=== PATIENT | female | born 1970 | race Caucasian/White ===

== ENCOUNTER 2017-03-24 09:04 | Inpatient (IN) | payer BC, OTHER ==
[2017-03-24] MEDS ORDERED: Aspirin 81 MG Tab.Chew PO ONE (09:18)
[2017-03-24] MEDS ORDERED: Morphine 2 MG/ML Syringe IVPUSH ONE (09:18)
[2017-03-24] MEDS ORDERED: Ondansetron 4 MG/2 ML SDV IVPUSH ONE (09:18)
[2017-03-24] MEDS ORDERED: Nitroglycerin 2% Oint 1 GM UD Packet TOP ONE (09:19)
--- NOTE | 2017-03-24 09:20 | EDM.PDOC ---
ED HPI GENERAL MEDICAL PROBLEM - General Chief Complaint: Chest Pain Stated Complaint: CHEST PAIN Time Seen by Provider: 03/24/17 09:15 - History of Present Illness INITIAL COMMENTS - FREE TEXT/NARRATIVE: HISTORY AND PHYSICAL: History of present illness: Patient 46-year-old white female presents with a concern of chest pain shortness breath she's had this exacerbates been somewhat off and on to cross her chest somewhat vaguely described as no clear palliative or aggravating factors is no palpitations diaphoresis nausea or vomiting she denies history of known coronary artery disease or prior stroke she is a smoker Review of systems: As per history of present illness and below otherwise all systems reviewed and negative. Past medical history: As per history of present illness and as reviewed below otherwise noncontributory. Surgical history: As per history of present illness and as reviewed below otherwise noncontributory. Social history: No reported history of drug or alcohol abuse. Family history: As per history of present illness and as reviewed below otherwise noncontributory. Physical exam: HEENT: Atraumatic, normocephalic, pupils reactive, negative for conjunctival pallor or scleral icterus, mucous membranes moist, throat clear, neck supple, nontender, trachea midline. Lungs: Clear to auscultation, breath sounds equal bilaterally, chest nontender. Heart: S1S2, regular, negative for clicks, rubs, or JVD. Abdomen: Soft, nondistended, nontender. Negative for masses or hepatosplenomegaly. Negative for costovertebral tenderness. Pelvis: Stable nontender. Genitourinary: Deferred. Rectal: Deferred. Extremities: Atraumatic, negative for cords or calf pain. Neurovascular unremarkable. Neuro: Awake, alert, oriented. Cranial nerves II through XII unremarkable. Cerebellum unremarkable. Motor and sensory unremarkable throughout. Exam nonfocal. Diagnostics: CBC CMP PT/INR troponin d-dimer chest x-ray EKG Therapeutics: IV O2 monitor Nitropaste 1 inch morphine sulfate 2 mg Zofran 4 mg Impression: #1 chest pain Definitive disposition and diagnosis as appropriate pending reevaluation and review of above. Lower Anterior Chest Pain Score (Numeric/FACES): 10 - Related Data Allergies Allergy/AdvReac Type Severity Reaction Status Date / Time No Known Allergies Allergy Verified 03/24/17 09:11 Home Meds: Home Meds . [No Known Home Meds] 03/24/17 [History] ED ROS GENERAL - Review of Systems Review Of Systems: ROS reveals no pertinent complaints other than HPI. ED EXAM, GENERAL - Physical Exam Exam: See Below (See dictation) Course - Vital Signs Last Recorded V/S: Last Vital Signs Temp 36.6 C 03/24/17 09:16 Pulse 74 03/24/17 10:15 Resp 16 03/24/17 10:15 BP 120/79 03/24/17 10:15 Pulse Ox 97 03/24/17 10:15 - Orders/Labs/Meds Orders: Active Orders 24 hr Category Date Time Status Cardiac Monitoring [RC] . DIRECTED Care 03/24/17 09:11 Active EKG 12 Lead [EKG Documentation Completion] [RC] STAT Care 03/24/17 09:13 Active Ang Chest [CT] Stat Exams 03/24/17 10:09 Taken Chest 1V Frontal [CR] Stat Exams 03/24/17 09:11 Taken Labs: Laboratory Tests 03/24/17 03/24/17 03/24/17 Range/Units 09:19 09:19 09:19 WBC 8.88 (4.0-11.0) K/uL RBC 4.02 L (4.30-5.90) M/uL Hgb 12.7 (12.0-16.0) g/dL Hct 37.5 (36.0-46.0) % MCV 93.3 (80.0-98.0) fL MCH 31.6 (27.0-32.0) pg MCHC 33.9 (31.0-37.0) g/dL RDW Std Deviation 46.8 (28.0-62.0) fl RDW Coeff of Nicholas 14 (11.0-15.0) % Plt Count 224 (150-400) K/uL MPV 11.60 (7.40-12.00) fL Neut % (Auto) 68.2 (48.0-80.0) % Lymph % (Auto) 22.2 (16.0-40.0) % [place] % (Auto) 7.5 (0.0-15.0) % Eos % (Auto) 1.8 (0.0-7.0) % Baso % (Auto) 0.3 (0.0-1.5) % Neut # (Auto) 6.1 H (1.4-5.7) K/uL Lymph # (Auto) 2.0 (0.6-2.4) K/uL [place] # (Auto) 0.7 (0.0-0.8) K/uL Eos # (Auto) 0.2 (0.0-0.7) K/uL Baso # (Auto) 0.0 (0.0-0.1) K/uL Nucleated RBC % 0.0 /100WBC Nucleated RBCs # 0 K/uL INR 0.96 (0.86-1.11) D-Dimer, Quantitative 0.77 H (0.0-0.52) mg/LFEU Sodium 142 (136-146) mmol/L Potassium 4.0 (3.5-5.1) mmol/L Chloride 113 H (98-110) mmol/L Carbon Dioxide 20 L (21-31) mmol/L BUN 15 (6.0-23.0) mg/dL Creatinine 0.7 (0.6-1.5) mg/dL Est Cr Clr Drug Dosing 93.01 mL/min Estimated GFR (MDRD) > 60.0 ml/min Glucose 92 (60-110) mg/dL Calcium 8.6 L (8.8-10.8) mg/dL Total Bilirubin 0.4 (0.1-1.5) mg/dL AST 17 (5-40) IU/L ALT 17 (8-54) IU/L Alkaline Phosphatase 71 (40-150) Troponin I (0.0-0.29) NG/ML B-Natriuretic Peptide (<100) PG/ML Total Protein 6.4 (6.0-8.0) g/dL Albumin 3.6 (3.5-5.0) g/dL Globulin 2.8 (2.0-3.5) g/dL Albumin/Globulin Ratio 1.3 (1.3-2.8) 03/24/17 03/24/17 Range/Units 09:19 09:19 WBC (4.0-11.0) K/uL RBC (4.30-5.90) M/uL Hgb (12.0-16.0) g/dL Hct (36.0-46.0) % MCV (80.0-98.0) fL MCH (27.0-32.0) pg MCHC (31.0-37.0) g/dL RDW Std Deviation (28.0-62.0) fl RDW Coeff of Nicholas (11.0-15.0) % Plt Count (150-400) K/uL MPV (7.40-12.00) fL Neut % (Auto) (48.0-80.0) % Lymph % (Auto) (16.0-40.0) % [place] % (Auto) (0.0-15.0) % Eos % (Auto) (0.0-7.0) % Baso % (Auto) (0.0-1.5) % Neut # (Auto) (1.4-5.7) K/uL Lymph # (Auto) (0.6-2.4) K/uL [place] # (Auto) (0.0-0.8) K/uL Eos # (Auto) (0.0-0.7) K/uL Baso # (Auto) (0.0-0.1) K/uL Nucleated RBC % /100WBC Nucleated RBCs # K/uL INR (0.86-1.11) D-Dimer, Quantitative (0.0-0.52) mg/LFEU Sodium (136-146) mmol/L Potassium (3.5-5.1) mmol/L Chloride (98-110) mmol/L Carbon Dioxide (21-31) mmol/L BUN (6.0-23.0) mg/dL Creatinine (0.6-1.5) mg/dL Est Cr Clr Drug Dosing mL/min Estimated GFR (MDRD) ml/min Glucose (60-110) mg/dL Calcium (8.8-10.8) mg/dL Total Bilirubin (0.1-1.5) mg/dL AST (5-40) IU/L ALT (8-54) IU/L Alkaline Phosphatase (40-150) Troponin I < 0.10 (0.0-0.29) NG/ML B-Natriuretic Peptide 375 H (<100) PG/ML Total Protein (6.0-8.0) g/dL Albumin (3.5-5.0) g/dL Globulin (2.0-3.5) g/dL Albumin/Globulin Ratio (1.3-2.8) Meds: Medications Discontinued Medications Generic Name Dose Route Start Last Admin Trade Name Kashif PRN Reason Stop Dose Admin Aspirin 324 mg 03/24/17 09:18 03/24/17 09:30 Aspirin PO 03/24/17 09:19 324 mg ONETIME ONE Administration Iopamidol 50 ml 03/24/17 11:07 03/24/17 11:07 Isovue-370 (76%) IV 03/24/17 11:08 50 ml ONETIME STA Administration Morphine Sulfate 2 mg 03/24/17 09:18 03/24/17 09:31 Morphine IVPUSH 03/24/17 09:19 2 mg ONETIME ONE Administration Nitroglycerin 1 gm 03/24/17 09:19 03/24/17 09:30 Nitro-Bid 2% TOP 03/24/17 09:20 1 gm ONETIME ONE Administration Ondansetron HCl 4 mg 03/24/17 09:18 03/24/17 09:31 Zofran IVPUSH 03/24/17 09:19 4 mg ONETIME ONE Administration Departure - Departure Time of Disposition: 11:08 Disposition: Refer to Observation Condition: Good Clinical Impression: Chest pain - Discharge Information - My Orders Last 24 Hours: My Active Orders 03/24/17 09:11 Cardiac Monitoring [RC] . DIRECTED Chest 1V Frontal [CR] Stat 03/24/17 09:13 EKG 12 Lead [EKG Documentation Completion] [RC] STAT 03/24/17 10:09 Ang Chest [CT] Stat - Assessment/Plan Last 24 Hours: My Active Orders 03/24/17 09:11 Cardiac Monitoring [RC] . DIRECTED Chest 1V Frontal [CR] Stat 03/24/17 09:13 EKG 12 Lead [EKG Documentation Completion] [RC] STAT 03/24/17 10:09 Ang Chest [CT] Stat
[2017-03-24 09:50] LABS: CHLORIDE,CL 113 mmol/L (98-110); SODIUM,NA 142 mmol/L (136-146)
[2017-03-24] MEDS ORDERED: Iopamidol 755 MG/ML 50 ML Bottle IV STA (11:07)
[2017-03-24] MEDS ORDERED: Bisacodyl 5 MG Tab PO PRN (13:58)
[2017-03-24] MEDS ORDERED: Albuterol/Ipratropium 3.0-0.5 MG/3 ML Neb Soln NEB PRN (13:58)
[2017-03-24] MEDS ORDERED: Sodium Chloride 0.9% 10 ML Syringe FLUSH PRN (13:58)
[2017-03-24] MEDS ORDERED: Sodium Chloride 0.9% 2.5 ML Syringe FLUSH PRN (13:58)
[2017-03-24] MEDS ORDERED: Temazepam 15 MG Cap PO PRN (13:58)
[2017-03-24] MEDS ORDERED: Docusate Sodium 100 MG Cap PO PRN (13:58)
[2017-03-24] MEDS ORDERED: Lisinopril 10 MG Tab PO SCH (14:00)
[2017-03-24] MEDS: Acetaminophen 325 MG Tab PO PRN ×2 (14:01→18:14)
[2017-03-24] MEDS ORDERED: Nicotine 21 MG/24 Hr Patch TRDERM PRN (14:09)
--- NOTE | 2017-03-24 14:18 | PCM.HP ---
H&P History of Present Illness - General Date of Service: 03/24/17 Admit Problem/Dx: Admission Diagnosis/Problem Admission Diagnosis/Problem CHF, Congestive heart failure Source of Information: Patient, Provider, RN - History of Present Illness Initial Comments - Free Text/Narative: She presented to the ED today with chest pressure, dyspnea, LEMOS , orthopnea of two days duration. She has continued chest pressure since at least yesterday. She admits that she has no regular doctor and takes no prescription medicines No vomiting she thinks that she is "going through menopause. She has two menses per month. no fever no cough no known history of prior heart disease. Lower Anterior Chest Pain Score (Numeric/FACES): 7 - Related Data Allergies/Adverse Reactions: Allergies Allergy/AdvReac Type Severity Reaction Status Date / Time No Known Allergies Allergy Verified 03/24/17 09:11 Home Medications: Home Meds . [No Known Home Meds] 03/24/17 [History] Past Medical History HEENT History: Reports: None Cardiovascular History: Reports: None. Denies: CAD, Heart Failure, High Cholesterol, Hypertension, [place] Respiratory History: Reports: Other (See Below). 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 Musculoskeletal History: Reports: Other (See Below) Other Musculoskeletal History: chronic knee pain Neurological History: Reports: None Psychiatric History: Reports: None Endocrine/Metabolic History: Denies: Diabetes, Type I, Diabetes, Type II Hematologic History: Denies: Anticoagulation Therapy, Bleeding Disorder Oncologic (Cancer) History: Reports: None Dermatologic History: Reports: None - Infectious Disease History Infectious Disease History: Reports: Chicken Pox - Past Surgical History HEENT Surgical History: Reports: None GI Surgical History: Reports: None Musculoskeletal Surgical History: Reports: Other (See Below) Other Musculoskeletal Surgeries/Procedures:: KNEE SURGERY Social & Family History - Family History Cardiac: Reports: Bypass, Other (See Below) Other Cardiac Family History: grandma had a stroke Oncologic: Reports: Prostate Other Oncologic Family History: mom's father had prostate CA - Tobacco Use Smoking Status *Q: Current Every Day Smoker Years of Tobacco use: 25 Packs/Tins Daily: 1 Tobacco Use Comment: Provided patient with ND quits information - Caffeine Use Caffeine Use: Reports: Soda - Alcohol Use Days Per Week of Alcohol Use: 0 Alcohol Use Comment: she occasionally has a marguerita. She does not use alcohol daily. - Recreational Drug Use Recreational Drug Use: No H&P Review of Systems - Review of Systems: Review Of Systems: See Below General: Denies: Fever, Chills HEENT: Reports: Headaches (since nitroglycerin placed). Denies: Dysphasia Pulmonary: Reports: Shortness of Breath. Denies: Cough, Sputum Cardiovascular: Reports: Chest Pain Gastrointestinal: Denies: Abdominal Pain, Hematemesis, Hematochezia, Melena Genitourinary: Reports: Abnormal Menses (as per HPI). Denies: Dysuria, Hematuria Skin: Denies: Cyanosis Neurological: Denies: Confusion, Seizure Exam - Exam Exam: See Below - Vital Signs Vital Signs: Last Vital Signs Temp 97.3 F 03/24/17 11:45 Pulse 70 03/24/17 11:45 Resp 16 03/24/17 11:45 BP 120/72 03/24/17 11:45 Pulse Ox 100 03/24/17 11:45 Weight: 110.3 kg - Exam General: Alert, Oriented, Cooperative HEENT: EOMI Neck: No: JVD (slight fullness of neck but thick neck; difficult to assess JVD) Lungs: Other (bibasilar rales) Cardiovascular: Regular Rate, Regular Rhythm GI/Abdominal Exam: Soft, Non-Tender (Female) Exam: Deferred Rectal (Female) Exam: Deferred Extremities: No Pedal Edema Neurological: Cranial Nerves Intact, Normal Speech Neuro Extensive - Motor, Sensory, Reflexes: No: Facial palsy (L), Facial Palsy ( R), Hemeplagia (R), Hemeplagia (L) Psychiatric: Alert, Normal Affect. No: Agitated - Patient Data Result Diagrams: 03/24/17 09:19 03/24/17 09:19 *Q Meaningful Use (ADM) - VTE *Q VTE Criteria *Q: - Stroke *Q Stroke Criteria *Q: - AMI *Q AMI Criteria *Q: - Problem List (1) Congestive heart failure SNOMED Code(s): 02807942 ICD Code: I50.9 - HEART FAILURE, UNSPECIFIED Status: Acute Current Visit : Yes Problem List Initiated/Reviewed/Updated: Yes Orders Last 24hrs: Active Orders 24 hr Category Date Time Status Antiembolic Devices [RC] PER UNIT ROUTINE Care 03/24/17 14:04 Ordered Cardiac Monitoring [RC] . DIRECTED Care 03/24/17 13:56 Ordered Communication Order [RC] STAT Care 03/24/17 14:11 Ordered Oxygen Therapy [RC] PRN Care 03/24/17 13:58 Ordered RT Aerosol Therapy [RC] ASDIRECTED Care 03/24/17 14:04 Ordered VTE/DVT Education [RC] PER UNIT ROUTINE Care 03/24/17 13:58 Ordered Vital Signs [RC] Q4H Care 03/24/17 13:58 Ordered 2 Gram Sodium Diet [DIET] Diet 03/24/17 Lunch Ordered Echo 2D wo Cont [US] Urgent Exams 03/25/17 08:00 Ordered B-TYPE NATRIURETIC PEPTIDE,BNP [CHEM] Routine Lab 03/24/17 14:08 Ordered CBC WITH AUTO DIFF [HEME] AM Lab 03/25/17 05:11 Ordered CBC WITH AUTO DIFF [HEME] AM Lab 03/26/17 05:11 Ordered CBC WITH AUTO DIFF [HEME] AM Lab 03/27/17 05:11 Ordered COMPREHENSIVE METABOLIC PN,CMP [CHEM] AM Lab 03/25/17 05:11 Ordered COMPREHENSIVE METABOLIC PN,CMP [CHEM] AM Lab 03/26/17 05:11 Ordered COMPREHENSIVE METABOLIC PN,CMP [CHEM] AM Lab 03/27/17 05:11 Ordered HCG QUALITATIVE,SERUM [CHEM] Stat Lab 03/24/17 14:08 Ordered MAGNESIUM [CHEM] AM Lab 03/25/17 05:11 Ordered MAGNESIUM [CHEM] AM Lab 03/26/17 05:11 Ordered MAGNESIUM [CHEM] AM Lab 03/27/17 05:11 Ordered TROPONIN I [CHEM] Q6H Lab 03/24/17 17:00 Ordered TROPONIN I [CHEM] Q6H Lab 03/24/17 23:00 Ordered TROPONIN I [CHEM] Q6H Lab 03/25/17 05:00 Ordered Acetaminophen [Tylenol] Med 03/24/17 13:39 Active 650 mg PO Q4H PRN Albuterol/Ipratropium [DuoNeb 3.0-0.5 MG/3 ML] Med 03/24/17 13:58 Ordered 3 ml NEB Q4HRRT PRN Bisacodyl [Dulcolax] Med 03/24/17 13:58 Ordered 5 mg PO DAILY PRN Docusate Sodium [Colace] Med 03/24/17 13:58 Ordered 100 mg PO BID PRN Enoxaparin [Lovenox] Med 03/25/17 09:00 Ordered 100 mg SUBCUT DAILY FLU Vacc [id number] 36mos UP/PF [Fluarix Quad 1219-1053] Med 03/31/17 23:59 Once 60 mcg IM .ONCE ONE Furosemide [Lasix] Med 03/25/17 09:00 Ordered 40 mg IVPUSH BID Furosemide [Lasix] Med 03/24/17 13:58 Once 60 mg IVPUSH NOW ONE Lisinopril [Prinivil] Med 03/24/17 14:00 Ordered 10 mg PO DAILY Nicotine [Habitrol] Med 03/24/17 14:09 Ordered 21 mg TRDERM DAILY PRN Sodium Chloride 0.9% [Saline Flush] Med 03/24/17 13:58 Ordered 10 ml FLUSH ASDIRECTED PRN Sodium Chloride 0.9% [Saline Flush] Med 03/24/17 13:58 Ordered 2.5 ml FLUSH ASDIRECTED PRN Temazepam [Restoril] Med 03/24/17 13:58 Ordered 15 mg PO BEDTIME PRN Saline Lock Insert [OM.PC] Routine Oth 03/24/17 13:58 Ordered Sequential Compression Device [OM.PC] Per Unit Routine Oth 03/24/17 13:59 Ordered Resuscitation Status Routine Resus Stat 03/24/17 13:58 Ordered Medication Orders Acetaminophen (Tylenol) 650 mg PO Q4H PRN PRN Reason: Headache Last Admin: 03/24/17 14:01 Dose: 650 mg Assessment/Plan Comment:: admit to inpatient see orders Tyrone Elizabeth MD
[2017-03-24] MEDS ORDERED: Furosemide 20 MG/2 ML VIAL IVPUSH ONE (14:30)
[2017-03-24] MEDS ORDERED: Morphine 4 MG/ML Syringe IVPUSH PRN (19:48)
[2017-03-24] MEDS ORDERED: Ondansetron 4 MG/2 ML SDV IVPUSH PRN (21:22)
--- NOTE | 2017-03-24 21:50 | PCM.SN ---
- Free Text/Narrative Note: I was called to see patient for sinus tachycardia. "She has continued chest pressure and now more dyspnea. Exam: lungs: increased work of breathing; CTA heart: RRR rapid normal mentation A; tachycardia; dyspnea, chest pain. Presumptive diagnosis was CHF but must consider other etiology such as pneumonia now with over diuresis. P: echo tomorrow fluid bolus CTa was neg for PE lab blood cultures zosyn, vancomycin, azithromycin. Tyrone Elizabeth MD
[2017-03-24] MEDS ORDERED: Piperacillin/Tazobactam 3.375 GM in Sodium Chloride 0.9% 50 ML IV SCH (22:00)
[2017-03-24] MEDS ORDERED: Sodium Chloride 0.9% 1,000 ML IV SCH (22:00)
[2017-03-24 22:53] LABS: CHLORIDE,CL 106 mmol/L (98-110); SODIUM,NA 141 mmol/L (136-146)
[2017-03-24] MEDS ORDERED: Azithromycin 500 MG in Sodium Chloride 0.9% 250 ML IV SCH (23:00)
[2017-03-24] MEDS ORDERED: Diltiazem 25 MG/5 ML SDV IVPUSH STA (23:18)
[2017-03-24] MEDS ORDERED: Potassium Chloride 10% 20 MEQ/15 ML Soln 30 ML UD Cup PO ONE (23:46)
[2017-03-25] MEDS ORDERED: Vancomycin 1.5 GM in Sodium Chloride 0.9% 500 ML IV SCH ×2
[2017-03-25] MEDS ORDERED: Magnesium Sulfate/Water 4 GM in Premix Bag 1 BAG IV ONE ×2
[2017-03-25] MEDS ORDERED: Diltiazem 25 MG/5 ML SDV IVPUSH ONE (00:23)
--- NOTE | 2017-03-25 00:23 | PCM.DCSUM1 ---
Discharge Summary - Hospital Course Brief History: she was admitted for chest pain. - Discharge Data Discharge Date: 03/25/17 Discharge Disposition: DC/Tfer to Acute Hospital 02 Condition: Serious - Discharge Diagnosis/Problem(s) (1) Congestive heart failure SNOMED Code(s): 26278947 ICD Code: I50.9 - HEART FAILURE, UNSPECIFIED Status: Acute Current Visit : Yes (2) Atrial fibrillation with rapid ventricular response SNOMED Code(s): 047308392865651 ICD Code: I48.91 - UNSPECIFIED ATRIAL FIBRILLATION Status: Acute Current Visit: Yes - Patient Summary/Data Hospital Course: Serial troponins were normal. CXR was suggestive of pulmonary edema. D dimer was negative but CTa chest was c/w pulmonary edema. It was thought that she had CHF new onset. She reported symptoms of LEMOS, PND and orthopnea. She was given lasix 60 mg IV. She had worsening dyspnea and was reported to be tachycardic. Twelve lead EKG showed atrial fibrillation with RVR. Her blood pressure was 90/50 mm Hg. IVF bolus was ordered and diltiazem was ordered. After 10 mg diltiazem IV her heart rate went from 150's to 130s. further diltiazem boluses ( 5 mg x 2) and then diltiazem drip started I discussed with patient and family regarding transfer.Family actually requested transfer and I agreed. I also ordered mg and K supplementation. I spoke with Dr Traore, ER physician Olamide Hart who agrees to accept in transfer. - Discharge Plan Home Medications: Home Meds . [No Known Home Meds] 03/24/17 [History] Forms: ED Department Discharge Referrals: PCP,None [Primary Care Provider] - - Patient Data Vitals - Most Recent: Last Vital Signs Temp 97.7 F 03/24/17 21:00 Pulse 74 03/24/17 21:00 Resp 13 03/24/17 21:00 BP 124/75 03/24/17 21:00 Pulse Ox 97 03/24/17 21:00 Weight - Most Recent: 110.3 kg I&O - Last 24 hours: Intake & Output 03/24/17 03/24/17 03/25/17 14:59 22:59 06:59 Intake Total 1400 Output Total 1150 Balance 250 Lab Results - Last 24 hrs: Laboratory Results - last 24 hr 03/24/17 03/24/17 03/24/17 Range/Units 14:25 14:25 16:47 WBC (4.0-11.0) K/uL RBC (4.30-5.90) M/uL Hgb (12.0-16.0) g/dL Hct (36.0-46.0) % MCV (80.0-98.0) fL MCH (27.0-32.0) pg MCHC (31.0-37.0) g/dL RDW Std Deviation (28.0-62.0) fl RDW Coeff of Nicholas (11.0-15.0) % Plt Count (150-400) K/uL MPV (7.40-12.00) fL Neut % (Auto) (48.0-80.0) % Lymph % (Auto) (16.0-40.0) % [place] % (Auto) (0.0-15.0) % Eos % (Auto) (0.0-7.0) % Baso % (Auto) (0.0-1.5) % Neut # (Auto) (1.4-5.7) K/uL Lymph # (Auto) (0.6-2.4) K/uL [place] # (Auto) (0.0-0.8) K/uL Eos # (Auto) (0.0-0.7) K/uL Baso # (Auto) (0.0-0.1) K/uL Nucleated RBC % /100WBC Nucleated RBCs # K/uL Sodium (136-146) mmol/L Potassium (3.5-5.1) mmol/L Chloride (98-110) mmol/L Carbon Dioxide (21-31) mmol/L BUN (6.0-23.0) mg/dL Creatinine (0.6-1.5) mg/dL Est Cr Clr Drug Dosing mL/min Estimated GFR (MDRD) ml/min Glucose (60-110) mg/dL Calcium (8.8-10.8) mg/dL Magnesium (1.5-2.3) mEq/L Troponin I < 0.10 (0.0-0.29) NG/ML B-Natriuretic Peptide 373 H (<100) PG/ML HCG, Qual NEGATIVE (NEG) 03/24/17 03/24/17 03/24/17 Range/Units 22:03 22:03 22:11 WBC 9.90 (4.0-11.0) K/uL RBC 4.18 L (4.30-5.90) M/uL Hgb 13.3 (12.0-16.0) g/dL Hct 38.6 (36.0-46.0) % MCV 92.3 (80.0-98.0) fL MCH 31.8 (27.0-32.0) pg MCHC 34.5 (31.0-37.0) g/dL RDW Std Deviation 46.4 (28.0-62.0) fl RDW Coeff of Nicholas 14 (11.0-15.0) % Plt Count 199 (150-400) K/uL MPV 11.60 (7.40-12.00) fL Neut % (Auto) 74.3 (48.0-80.0) % Lymph % (Auto) 16.9 (16.0-40.0) % [place] % (Auto) 7.6 (0.0-15.0) % Eos % (Auto) 0.9 (0.0-7.0) % Baso % (Auto) 0.3 (0.0-1.5) % Neut # (Auto) 7.4 H (1.4-5.7) K/uL Lymph # (Auto) 1.7 (0.6-2.4) K/uL [place] # (Auto) 0.8 (0.0-0.8) K/uL Eos # (Auto) 0.1 (0.0-0.7) K/uL Baso # (Auto) 0.0 (0.0-0.1) K/uL Nucleated RBC % 0.0 /100WBC Nucleated RBCs # 0 K/uL Sodium 141 (136-146) mmol/L Potassium 3.2 L (3.5-5.1) mmol/L Chloride 106 (98-110) mmol/L Carbon Dioxide 22 (21-31) mmol/L BUN 13 (6.0-23.0) mg/dL Creatinine 0.7 (0.6-1.5) mg/dL Est Cr Clr Drug Dosing 93.01 mL/min Estimated GFR (MDRD) > 60.0 ml/min Glucose 119 H (60-110) mg/dL Calcium 9.2 (8.8-10.8) mg/dL Magnesium 1.2 L (1.5-2.3) mEq/L Troponin I < 0.10 (0.0-0.29) NG/ML B-Natriuretic Peptide (<100) PG/ML HCG, Qual (NEG) Med Orders - Current: Current Medications Acetaminophen (Tylenol) 650 mg PO Q4H PRN PRN Reason: Headache Last Admin: 03/24/17 18:14 Dose: 650 mg Albuterol/Ipratropium (Duoneb 3.0-0.5 Mg/3 Ml) 3 ml NEB Q4HRRT PRN PRN Reason: Shortness Of Breath/wheezing Last Admin: 03/24/17 17:49 Dose: 3 ml Bisacodyl (Dulcolax) 5 mg PO DAILY PRN PRN Reason: Constipation Docusate Sodium (Colace) 100 mg PO BID PRN PRN Reason: Constipation Enoxaparin Sodium (Lovenox) 40 mg SUBCUT DAILY COUNT INCLUDES THE [facility] Magnesium Sulfate 4 gm/ Premix 100 mls @ 25 mls/hr IV ONETIME ONE Stop: 03/25/17 03:59 Last Admin: 03/25/17 00:00 Dose: 25 mls/hr Lisinopril (Prinivil) 10 mg PO DAILY COUNT INCLUDES THE [facility] Last Admin: 03/24/17 14:57 Dose: 10 mg Morphine Sulfate (Morphine) 4 mg IVPUSH Q2H PRN PRN Reason: pain Last Admin: 03/24/17 20:12 Dose: 4 mg Nicotine (Habitrol) 21 mg TRDERM DAILY PRN PRN Reason: Other Last Admin: 03/24/17 15:08 Dose: 21 mg Ondansetron HCl (Zofran) 4 mg IVPUSH Q4H PRN PRN Reason: Nausea/Vomiting Last Admin: 03/24/17 21:34 Dose: 4 mg Sodium Chloride (Saline Flush) 10 ml FLUSH ASDIRECTED PRN PRN Reason: Keep Vein Open Sodium Chloride (Saline Flush) 2.5 ml FLUSH ASDIRECTED PRN PRN Reason: Keep Vein Open Temazepam (Restoril) 15 mg PO BEDTIME PRN PRN Reason: Sleep Vancomycin HCl (Pharmacy To Dose - Vancomycin) 1 dose .XX ASDIRECTED JONATHAN Discontinued Medications Aspirin (Aspirin) 324 mg PO ONETIME ONE Stop: 03/24/17 09:19 Last Admin: 03/24/17 09:30 Dose: 324 mg Diltiazem HCl (Diltiazem) 10 mg IVPUSH ONETIME STA Stop: 03/24/17 23:19 Last Admin: 03/24/17 23:43 Dose: 10 mg Enoxaparin Sodium (Lovenox) 100 mg SUBCUT DAILY COUNT INCLUDES THE [facility] Furosemide (Lasix) 60 mg IVPUSH NOW ONE Stop: 03/24/17 14:31 Last Admin: 03/24/17 15:04 Dose: 60 mg Furosemide (Lasix) 40 mg IVPUSH BID COUNT INCLUDES THE [facility] Azithromycin 500 mg/ Sodium (Chloride) 250 mls @ 250 mls/hr IV Q24H COUNT INCLUDES THE [facility] Stop: 03/25/17 00:03 Last Admin: 03/24/17 22:56 Dose: 250 mls/hr Piperacillin Sod/Tazobactam (Sod 3.375 gm/ Sodium Chloride) 50 mls @ 100 mls/ hr IV Q6H COUNT INCLUDES THE [facility] Last Admin: 03/24/17 22:16 Dose: 100 mls/hr Sodium Chloride (Normal Saline) 1,000 mls @ 1,000 mls/hr IV ASDIRECTED COUNT INCLUDES THE [facility] Stop: 03/24/17 22:59 Last Admin: 03/24/17 22:09 Dose: 1,000 mls/hr Vancomycin HCl 1.5 gm/ Sodium (Chloride) 500 mls @ 333.333 mls/hr IV Q8H COUNT INCLUDES THE [facility] Iopamidol (Isovue-370 (76%)) 50 ml IV ONETIME STA Stop: 03/24/17 11:08 Last Admin: 03/24/17 11:07 Dose: 50 ml Morphine Sulfate (Morphine) 2 mg IVPUSH ONETIME ONE Stop: 03/24/17 09:19 Last Admin: 03/24/17 09:31 Dose: 2 mg Nitroglycerin (Nitro-Bid 2%) 1 gm TOP ONETIME ONE Stop: 03/24/17 09:20 Last Admin: 03/24/17 09:30 Dose: 1 gm Ondansetron HCl (Zofran) 4 mg IVPUSH ONETIME ONE Stop: 03/24/17 09:19 Last Admin: 03/24/17 09:31 Dose: 4 mg Potassium Chloride (Potassium Chloride) 40 meq PO ONETIME ONE Stop: 03/24/17 23:47 Last Admin: 03/25/17 00:04 Dose: 40 meq *Q Meaningful Use (DIS) - VTE *Q VTE Criteria *Q: - Stroke *Q Stroke Criteria *Q: - AMI *Q AMI Criteria *Q:
[2017-03-25] MEDS ORDERED: Diltiazem 100 MG in Sodium Chloride 0.9% 100 ML IV SCH (00:30)
[2017-03-25] MEDS ORDERED: Enoxaparin 100 MG/1 ML Syringe SUBCUT ONE (00:30)
[2017-03-25 01:56] VITALS: BP 101/71
[2017-03-25] MEDS ORDERED: Furosemide 40 MG/4 ML VIAL IVPUSH SCH (09:00)
[2017-03-25] MEDS ORDERED: Enoxaparin 100 MG/1 ML Syringe SUBCUT SCH ×2 (09:00)
--- NOTE | 2017-03-25 16:17 | CR ---
EXAM DATE: 03/24/17 PATIENT'S AGE: 46 Patient: LIZABETH SAHNI Facility: [place], [place] Site . Site : 1970 Study: XRay Chest [id number]/[id number] 9:41:38 AM Ordering Physician: Doctor Fontenot Final Report: INDICATION: Chest pain. TECHNIQUE: Chest 1 view. COMPARISON: 11/12/2010 FINDINGS: Cardiovascular and mediastinum: Cardiac silhouette is upper limits of normal in size. The mediastinal contour is normal. Central pulmonary vasculature is indistinct. Lungs and pleural space: Mild bilateral interstitial prominence. No lobar consolidation. No mass. No pleural effusion. No pneumothorax. Bones and soft tissues: No acute findings. IMPRESSION: Mild bilateral interstitial prominence may reflect a mild degree of edema. Dictated by Kentrell Medina MD @ 03/24/2017 10:47:26 AM Dictated by: Kentrell Medina MD @ 03/24/2017 10:47:50 (Electronic Signature) Report Signed by Proxy. [facility]
--- NOTE | 2017-03-25 16:17 | CT ---
EXAM DATE: 03/24/17 PATIENT'S AGE: 46 Patient: LIZABETH SAHNI Facility: [place], [place] Site . Site : 1970 Study: CT Chest Angio [id number] -03/24/2017 11:06:48 AM Ordering Physician: Vick Mclean Final Report: INDICATION: Chest pain and shortness of breath. TECHNIQUE: CT chest pulmonary angiogram acquired with IV contrast. COMPARISON: Chest radiograph 03/24/2017, 11/12/2010. CT 12/15/2007 FINDINGS: Cardiovascular structures: Normal vascular enhancement of the pulmonary arteries , no sign of pulmonary embolism. Heart size is normal. Thoracic aorta is normal in caliber. Mediastinum and daniel: There are multiple prominent to mildly enlarged mediastinal lymph nodes measuring up to 1.2 cm in short axis. Prominent to mildly enlarged right hilar lymph node noted. Single prominent to mildly enlarged left hilar lymph node noted. Lungs: No pneumothorax. There are hazy bilateral ground-glass opacities. No lobar consolidation. No mass. Central airways are patent. A couple of small blebs are noted in the left lower lobe. Pleura and pericardium: There are small bilateral pleural effusions. No pericardial effusion. Chest wall and axilla: No mass or adenopathy. Bones: No acute abnormality. No suspicious bone lesion. Upper abdomen: Subcentimeter low-density lesion identified in the right hepatic lobe. IMPRESSION: 1. No pulmonary embolus. 2. Small bilateral pleural effusions. 3. Mild mediastinal and hilar lymphadenopathy. This is of uncertain etiology. Followup is recommended. 4. Hazy bilateral ground-glass opacities are nonspecific. This could reflect mild edema. Atypical inflammatory process could have this appearance. Dictated by Kentrell Medina MD @ 03/24/2017 12:07:44 PM Dictated by: Kentrell Medina MD @ 03/24/2017 12:07:47 (Electronic Signature) Report Signed by Proxy. SELENE
--- NOTE | 2017-03-25 16:31 | CR ---
EXAM DATE: 03/24/17 PATIENT'S AGE: 46 Patient: LIZABETH SAHNI Facility: [place], [place] Site . Site : 1970 Study: XRay Chest [id number]/17/2017 11:45:06 PM Ordering Physician: Glenn Hansen Final Report: INDICATIONS: Dyspnea. TECHNIQUE: Chest 1 view. COMPARISON: Chest CT 03/24/2017. FINDINGS: No pneumothorax. Small bilateral pleural effusions are not well demonstrated by radiography. Mild pulmonary edema is similar in appearance allowing for differences in imaging technique. Enlargement of the cardiac silhouette. Prominence of the right paratracheal region consistent with previously reported lymphadenopathy. Upper abdomen and osseous structures show no acute abnormality. IMPRESSION: Pulmonary edema is similar in appearance allowing for differences in imaging technique. Dictated by Maximo Martini MD @ 03/25/2017 12:12:15 AM Dictated by: Maximo Martini MD @ 03/25/2017 00:16:08 (Electronic Signature) Report Signed by Proxy. [facility]ENTER[facility]oo
[2017-03-31] MEDS ORDERED: FLU Vacc QS 2017-18 (36mos UP)/PF 60 MCG/0.5 ML Syringe IM ONE (23:59)
== END 2017-03-25 01:20 | DRG 196 ==
LOC: MW.ED 09:04 → MW.MS 10:11 → OBSVTOIN 13:56 → MW.MS 13:56 → MW.ICU 22:35
PROVIDERS: ADMIT Family Medicine; ATTEND Family Medicine
DX: R57.0 Cardiogenic shock (principal); I48.91 Unspecified atrial fibrillation; I95.9 Hypotension, unspecified
CPT/HCPCS: 36415; 71010; 71010-26; 71275; 71275-26; 80048; 80053; 83735; 83880; 84484; 84703; 85025; 85379; 85610; 87040; 93005; 94664; 96374; 96375; 99283; 99285-25; A9270-GY; J0456; J2270; J2405; J2543; J3475; J3490; J7040; J7050; Q9967

== ENCOUNTER 2017-05-29 07:09 | Observation (INO) | payer BC ==
[2017-05-29] MEDS ORDERED: Aspirin 81 MG Tab.Chew PO ONE (07:15)
[2017-05-29] MEDS ORDERED: Morphine 2 MG/ML Syringe IVPUSH ONE (07:15)
[2017-05-29] MEDS ORDERED: Sodium Chloride 0.9% 2.5 ML Syringe FLUSH PRN (07:15)
[2017-05-29] MEDS ORDERED: Sodium Chloride 0.9% 10 ML Syringe FLUSH PRN (07:15)
[2017-05-29] MEDS ORDERED: Ondansetron 4 MG/2 ML SDV IVPUSH ONE (07:15)
[2017-05-29] MEDS ORDERED: Nitroglycerin 2% Oint 1 GM UD Packet TOP ONE (07:15)
--- NOTE | 2017-05-29 07:19 | EDM.PDOC ---
ED HPI GENERAL MEDICAL PROBLEM - General Chief Complaint: Chest Pain Stated Complaint: CHEST PAIN Time Seen by Provider: 05/29/17 07:14 - History of Present Illness INITIAL COMMENTS - FREE TEXT/NARRATIVE: HISTORY AND PHYSICAL: History of present illness: Patient 46-year-old white female with history of atrial fibrillation and congestive heart failure presents with concern of chest pain and shortness of breath she states it started prior to arrival to without associated palpitations diaphoresis nausea or vomiting this is vaguely described mid chest without radiation Review of systems: As per history of present illness and below otherwise all systems reviewed and negative. Past medical history: As per history of present illness and as reviewed below otherwise noncontributory. Surgical history: As per history of present illness and as reviewed below otherwise noncontributory. Social history: No reported history of drug or alcohol abuse. Family history: As per history of present illness and as reviewed below otherwise noncontributory. Physical exam: HEENT: Atraumatic, normocephalic, pupils reactive, negative for conjunctival pallor or scleral icterus, mucous membranes moist, throat clear, neck supple, nontender, trachea midline. Lungs: Clear to auscultation, breath sounds equal bilaterally, chest nontender. Heart: S1S2, regular, negative for clicks, rubs, or JVD. Abdomen: Soft, nondistended, nontender. Negative for masses or hepatosplenomegaly. Negative for costovertebral tenderness. Pelvis: Stable nontender. Genitourinary: Deferred. Rectal: Deferred. Extremities: Atraumatic, negative for cords or calf pain. Neurovascular unremarkable. Neuro: Awake, alert, oriented. Cranial nerves II through XII unremarkable. Cerebellum unremarkable. Motor and sensory unremarkable throughout. Exam nonfocal. Diagnostics: CBC CMP PT/INR troponin BNP chest x-ray EKG Therapeutics: IV O2 monitor aspirin 324 mg by mouth morphine sulfate 2 mg IV Zofran 4 mg IV nitro paste 1 inch to chest wall Impression: #1 chest pain #2 dyspnea #3 history of CHF #4 history of atrial fibrillation Definitive disposition and diagnosis as appropriate pending reevaluation and review of above. chest Pain Score (Numeric/FACES): 8 - Related Data Allergies Allergy/AdvReac Type Severity Reaction Status Date / Time No Known Allergies Allergy Verified 05/29/17 07:16 Home Meds: Home Meds Aspirin 1 tab PO DAILY 05/29/17 [History] Metoprolol Succinate 50 mg PO DAILY 05/29/17 [History] Varenicline Tartrate [Chantix] 2 tab PO BID 05/29/17 [History] Past Medical History HEENT History: Reports: None Cardiovascular History: Reports: None. Denies: CAD, Heart Failure, High Cholesterol, Hypertension, [place] Respiratory History: Reports: Other (See Below). 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 Musculoskeletal History: Reports: Other (See Below) Other Musculoskeletal History: chronic knee pain Neurological History: Reports: None Psychiatric History: Reports: None Oncologic (Cancer) History: Reports: None Dermatologic History: Reports: None - Infectious Disease History Infectious Disease History: Reports: Chicken Pox - Past Surgical History HEENT Surgical History: Reports: None GI Surgical History: Reports: None Musculoskeletal Surgical History: Reports: Other (See Below) Other Musculoskeletal Surgeries/Procedures:: KNEE SURGERY Social & Family History - Family History Cardiac: Reports: Bypass, Other (See Below) Other Cardiac Family History: grandma had a stroke Oncologic: Reports: Prostate Other Oncologic Family History: mom's father had prostate CA - Tobacco Use Smoking Status *Q: Current Every Day Smoker Years of Tobacco use: 25 Packs/Tins Daily: 1 - Caffeine Use Caffeine Use: Reports: Soda - Alcohol Use Days Per Week of Alcohol Use: 0 - Recreational Drug Use Recreational Drug Use: No ED ROS GENERAL - Review of Systems Review Of Systems: ROS reveals no pertinent complaints other than HPI. ED EXAM, GENERAL - Physical Exam Exam: See Below (See dictation) Course - Vital Signs Last Recorded V/S: Last Vital Signs Temp 36.3 C 05/29/17 07:13 Pulse 70 05/29/17 08:43 Resp 18 05/29/17 08:43 BP 131/77 05/29/17 08:43 Pulse Ox 95 05/29/17 08:43 - Orders/Labs/Meds Orders: Active Orders 24 hr Category Date Time Status Patient Status [ADT] Stat ADT 05/29/17 08:58 Active Cardiac Monitoring [RC] . DIRECTED Care 05/29/17 07:15 Active EKG Documentation Completion [RC] STAT Care 05/29/17 07:15 Active Oxygen Therapy, ED [RC] ASDIRECTED Care 05/29/17 07:15 Active Pulse Oximetry [RC] ASDIRECTED Care 05/29/17 07:15 Active Chest 1V Frontal [CR] Stat Exams 05/29/17 07:15 Taken Sodium Chloride 0.9% [Saline Flush] Med 05/29/17 07:15 Active 10 ml FLUSH ASDIRECTED PRN Sodium Chloride 0.9% [Saline Flush] Med 05/29/17 07:15 Active 2.5 ml FLUSH ASDIRECTED PRN Saline Lock Insert [OM.PC] Stat Oth 05/29/17 07:15 Ordered Medication Orders Sodium Chloride (Saline Flush) 10 ml FLUSH ASDIRECTED PRN PRN Reason: Keep Vein Open Sodium Chloride (Saline Flush) 2.5 ml FLUSH ASDIRECTED PRN PRN Reason: Keep Vein Open Labs: Laboratory Tests 05/29/17 05/29/17 05/29/17 Range/Units 07:25 07:25 07:25 WBC 8.17 (4.0-11.0) K/uL RBC 4.18 L (4.30-5.90) M/uL Hgb 13.1 (12.0-16.0) g/dL Hct 38.6 (36.0-46.0) % MCV 92.3 (80.0-98.0) fL MCH 31.3 (27.0-32.0) pg MCHC 33.9 (31.0-37.0) g/dL RDW Std Deviation 46.1 (28.0-62.0) fl RDW Coeff of Nicholas 14 (11.0-15.0) % Plt Count 217 (150-400) K/uL MPV 12.20 H (7.40-12.00) fL Neut % (Auto) 75.5 (48.0-80.0) % Lymph % (Auto) 17.0 (16.0-40.0) % [place] % (Auto) 6.0 (0.0-15.0) % Eos % (Auto) 1.1 (0.0-7.0) % Baso % (Auto) 0.4 (0.0-1.5) % Neut # (Auto) 6.2 H (1.4-5.7) K/uL Lymph # (Auto) 1.4 (0.6-2.4) K/uL [place] # (Auto) 0.5 (0.0-0.8) K/uL Eos # (Auto) 0.1 (0.0-0.7) K/uL Baso # (Auto) 0.0 (0.0-0.1) K/uL Nucleated RBC % 0.0 /100WBC Nucleated RBCs # 0 K/uL INR 1.01 (0.86-1.11) Sodium 140 (136-146) mmol/L Potassium 4.0 (3.5-5.1) mmol/L Chloride 113 H (98-110) mmol/L Carbon Dioxide 19 L (21-31) mmol/L BUN 15 (6.0-23.0) mg/dL Creatinine 0.6 (0.6-1.5) mg/dL Est Cr Clr Drug Dosing 108.51 mL/min Estimated GFR (MDRD) > 60.0 ml/min Glucose 90 (60-110) mg/dL Calcium 8.5 L (8.8-10.8) mg/dL Total Bilirubin 0.8 (0.1-1.5) mg/dL AST 21 (5-40) IU/L ALT 21 (8-54) IU/L Alkaline Phosphatase 64 (40-150) Troponin I < 0.10 (0.0-0.29) NG/ML B-Natriuretic Peptide (<100) PG/ML Total Protein 6.8 (6.0-8.0) g/dL Albumin 3.8 (3.5-5.0) g/dL Globulin 3.0 (2.0-3.5) g/dL Albumin/Globulin Ratio 1.3 (1.3-2.8) 05/29/17 Range/Units 07:25 WBC (4.0-11.0) K/uL RBC (4.30-5.90) M/uL Hgb (12.0-16.0) g/dL Hct (36.0-46.0) % MCV (80.0-98.0) fL MCH (27.0-32.0) pg MCHC (31.0-37.0) g/dL RDW Std Deviation (28.0-62.0) fl RDW Coeff of Nicholas (11.0-15.0) % Plt Count (150-400) K/uL MPV (7.40-12.00) fL Neut % (Auto) (48.0-80.0) % Lymph % (Auto) (16.0-40.0) % [place] % (Auto) (0.0-15.0) % Eos % (Auto) (0.0-7.0) % Baso % (Auto) (0.0-1.5) % Neut # (Auto) (1.4-5.7) K/uL Lymph # (Auto) (0.6-2.4) K/uL [place] # (Auto) (0.0-0.8) K/uL Eos # (Auto) (0.0-0.7) K/uL Baso # (Auto) (0.0-0.1) K/uL Nucleated RBC % /100WBC Nucleated RBCs # K/uL INR (0.86-1.11) Sodium (136-146) mmol/L Potassium (3.5-5.1) mmol/L Chloride (98-110) mmol/L Carbon Dioxide (21-31) mmol/L BUN (6.0-23.0) mg/dL Creatinine (0.6-1.5) mg/dL Est Cr Clr Drug Dosing mL/min Estimated GFR (MDRD) ml/min Glucose (60-110) mg/dL Calcium (8.8-10.8) mg/dL Total Bilirubin (0.1-1.5) mg/dL AST (5-40) IU/L ALT (8-54) IU/L Alkaline Phosphatase (40-150) Troponin I (0.0-0.29) NG/ML B-Natriuretic Peptide 446 H (<100) PG/ML Total Protein (6.0-8.0) g/dL Albumin (3.5-5.0) g/dL Globulin (2.0-3.5) g/dL Albumin/Globulin Ratio (1.3-2.8) Meds: Medications Generic Name Dose Route Start Last Admin Trade Name Freq PRN Reason Stop Dose Admin Sodium Chloride 10 ml 05/29/17 07:15 Saline Flush FLUSH ASDIRECTED PRN Keep Vein Open Sodium Chloride 2.5 ml 05/29/17 07:15 Saline Flush FLUSH ASDIRECTED PRN Keep Vein Open Discontinued Medications Generic Name Dose Route Start Last Admin Trade Name Kashif PRN Reason Stop Dose Admin Aspirin 324 mg 05/29/17 07:15 05/29/17 07:28 Aspirin PO 05/29/17 07:16 324 mg ONETIME ONE Administration Aspirin Confirm 05/29/17 07:23 05/29/17 07:29 Aspirin Administered 05/29/17 07:24 Not Given Dose 324 mg .ROUTE .STK-MED ONE Furosemide 20 mg 05/29/17 08:58 Lasix IVPUSH 05/29/17 08:59 NOW ONE Morphine Sulfate 2 mg 05/29/17 07:15 05/29/17 07:28 Morphine IVPUSH 05/29/17 07:16 2 mg ONETIME ONE Administration Nitroglycerin 1 gm 05/29/17 07:15 05/29/17 07:28 Nitro-Bid 2% TOP 05/29/17 07:16 1 gm ONETIME ONE Administration Ondansetron HCl 4 mg 05/29/17 07:15 05/29/17 07:28 Zofran IVPUSH 05/29/17 07:16 4 mg ONETIME ONE Administration Departure - Departure Time of Disposition: 09:02 Disposition: Refer to Observation Condition: Good Clinical Impression: Chest pain - Discharge Information Referrals: PCP,None [Primary Care Provider] - Forms: ED Department Discharge - My Orders Last 24 Hours: My Active Orders 05/29/17 07:15 Cardiac Monitoring [RC] . DIRECTED EKG Documentation Completion [RC] STAT Oxygen Therapy, ED [RC] ASDIRECTED Pulse Oximetry [RC] ASDIRECTED Chest 1V Frontal [CR] Stat Sodium Chloride 0.9% [Saline Flush] 10 ml FLUSH ASDIRECTED PRN Sodium Chloride 0.9% [Saline Flush] 2.5 ml FLUSH ASDIRECTED PRN Saline Lock Insert [OM.PC] Stat 05/29/17 08:58 Patient Status [ADT] Stat - Assessment/Plan Last 24 Hours: My Active Orders 05/29/17 07:15 Cardiac Monitoring [RC] . DIRECTED EKG Documentation Completion [RC] STAT Oxygen Therapy, ED [RC] ASDIRECTED Pulse Oximetry [RC] ASDIRECTED Chest 1V Frontal [CR] Stat Sodium Chloride 0.9% [Saline Flush] 10 ml FLUSH ASDIRECTED PRN Sodium Chloride 0.9% [Saline Flush] 2.5 ml FLUSH ASDIRECTED PRN Saline Lock Insert [OM.PC] Stat 05/29/17 08:58 Patient Status [ADT] Stat
[2017-05-29] MEDS ORDERED: Aspirin 81 MG Tab.Chew ONE (07:23)
[2017-05-29 08:01] LABS: CHLORIDE,CL 113 mmol/L (98-110); SODIUM,NA 140 mmol/L (136-146)
[2017-05-29] MEDS ORDERED: Furosemide 40 MG/4 ML VIAL IVPUSH ONE (08:58)
[2017-05-29] MEDS ORDERED: Ondansetron 4 MG Tab PO PRN (10:16)
--- NOTE | 2017-05-29 10:16 | PCM.HP ---
<Stephy Gray - Last Filed: 05/29/17 14:08> H&P History of Present Illness - General Date of Service: 05/29/17 Admit Problem/Dx: Admission Diagnosis/Problem Admission Diagnosis/Problem Chest pain - History of Present Illness Initial Comments - Free Text/Narative: 46 yo female wtih history CHF and A-Fib admitted for CHF excerabation. She was sob since 6 days that worsened last night. She felt chest pain and pressure in the middle of her chest with palpitations. She has not any recent uri or changes in medications. She has decreased her cigarette smoking to 6 per day. She was admitted last month for new onset of a-fib with RVT that was difficult to control. She was transferred to [facility] where her rate was controlled with medications. Echo showed CHF. She does not have history of HTN, Hyperlipidemia, Diabetes or copd. She was seen by Dr. Torres who discharged her with Lopressor for rate control of A-fib. He did not recommend any other medications or intervention. chest Pain Score (Numeric/FACES): 8 - Related Data Allergies/Adverse Reactions: Allergies Allergy/AdvReac Type Severity Reaction Status Date / Time No Known Allergies Allergy Verified 05/29/17 07:16 Home Medications: Home Meds Aspirin 1 tab PO DAILY 05/29/17 [History] Melatonin 2 tab PO BEDTIME PRN 05/29/17 [History] Metoprolol Succinate 50 mg PO DAILY 05/29/17 [History] Varenicline Tartrate [Chantix] 2 tab PO BID 05/29/17 [History] Past Medical History HEENT History: Reports: None Cardiovascular History: Reports: None. Denies: CAD, Heart Failure, High Cholesterol, Hypertension, [place] Respiratory History: Reports: Other (See Below). 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 Musculoskeletal History: Reports: Other (See Below) Other Musculoskeletal History: chronic knee pain Neurological History: Reports: None Psychiatric History: Reports: None Oncologic (Cancer) History: Reports: None Dermatologic History: Reports: None - Infectious Disease History Infectious Disease History: Reports: Chicken Pox - Past Surgical History HEENT Surgical History: Reports: None GI Surgical History: Reports: None Musculoskeletal Surgical History: Reports: Other (See Below) Other Musculoskeletal Surgeries/Procedures:: KNEE SURGERY Social & Family History - Family History Family Medical History: Noncontributory Cardiac: Reports: Bypass, Other (See Below) Other Cardiac Family History: grandma had a stroke Oncologic: Reports: Prostate Other Oncologic Family History: mom's father had prostate CA - Tobacco Use Smoking Status *Q: Current Every Day Smoker Years of Tobacco use: 30 Packs/Tins Daily: 0.2 Used Tobacco, but Quit: No Second Hand Smoke Exposure: No - Caffeine Use Caffeine Use: Reports: Soda - Alcohol Use Days Per Week of Alcohol Use: 0 - Recreational Drug Use Recreational Drug Use: No H&P Review of Systems - Review of Systems: General: Reports: No Symptoms HEENT: Reports: No Symptoms Pulmonary: Reports: No Symptoms Cardiovascular: Reports: Chest Pain, Other (imrpoving) Gastrointestinal: Reports: No Symptoms Genitourinary: Reports: No Symptoms Musculoskeletal: Reports: No Symptoms Skin: Reports: No Symptoms Psychiatric: Reports: No Symptoms Neurological: Reports: Headache Exam - Vital Signs Vital Signs: Last Vital Signs Temp 98.4 F 05/29/17 10:04 Pulse 78 05/29/17 10:04 Resp 20 05/29/17 10:04 BP 123/74 05/29/17 10:04 Pulse Ox 94 L 05/29/17 10:04 Weight: 239 lb 13.807 oz - Exam General: Alert, Oriented HEENT: Conjunctiva Clear, EOMI Neck: Supple, Trachea Midline Lungs: Clear to Auscultation, Normal Respiratory Effort Cardiovascular: Regular Rate, Regular Rhythm GI/Abdominal Exam: Normal Bowel Sounds, Soft Extremities: Normal Inspection, Normal Range of Motion Neuro Extensive - Mental Status: Alert, Oriented x3, Normal Mood/Affect Psychiatric: Alert, Normal Affect - Patient Data Result Diagrams: 05/29/17 07:25 05/29/17 07:25 *Q Meaningful Use (ADM) - VTE *Q VTE Criteria *Q: - Stroke *Q Stroke Criteria *Q: - AMI *Q AMI Criteria *Q: Orders Last 24hrs: Active Orders 24 hr Category Date Time Status Pharmacy to Dose [Pharmacy to Dose - InFluenza Vaccine] Med 05/29/17 10:15 Once 1 each IM ONETIME ONE Medication Orders Influenza Virus Vaccine (Pharmacy To Dose - Influenza Vaccine) 1 each IM ONETIME ONE Stop: 05/29/17 10:16 Sodium Chloride (Saline Flush) 10 ml FLUSH ASDIRECTED PRN PRN Reason: Keep Vein Open Sodium Chloride (Saline Flush) 2.5 ml FLUSH ASDIRECTED PRN PRN Reason: Keep Vein Open Assessment/Plan Comment:: 46 yo female with history of CHF and A-Fib admitted for chest pain and CHF exerabation: R/o ACS: troponin negative EKG: no acute changes CHF: echo ordered today. IVP lasix QD, monitor I/O. Her blood pressure is stable. check lipid profile. <Karen Day - Last Filed: 05/29/17 19:44> H&P History of Present Illness - General Admit Problem/Dx: Admission Diagnosis/Problem Admission Diagnosis/Problem Chest pain - History of Present Illness Initial Comments - Free Text/Narative: aS PER PATIENT SHE HAD A STRESS TEST THAT WAS ABNORMAL BUT NO FURTHER WORK UP WAS DONE. She c/o cp since last night continuous , tender to palpation and also worse with breathing . She had this kind of pain 2 mo ago. Did not check her cholesterol in the past . Was a heavy smoker and currently she is trying to quit. She complains of SOB , PND, orthopneea, and b/l lower extremity swelling chest Pain Score (Numeric/FACES): 8 Headache Pain Score (Numeric/FACES): 9 H&P Review of Systems - Review of Systems: Review Of Systems: See Below Exam - Exam Exam: See Below - Vital Signs Vital Signs: Last Vital Signs Temp 98.7 F 05/29/17 17:43 Pulse 78 05/29/17 17:43 Resp 20 05/29/17 17:43 BP 123/78 05/29/17 17:43 Pulse Ox 96 05/29/17 17:43 - Exam Cardiovascular: Normal S1 (accentuated S2 , heart murmur), Gallop/S3 - Patient Data Lab Results Last 24 hrs: Laboratory Results - last 24 hr 05/29/17 05/29/17 05/29/17 Range/Units 10:33 14:37 14:37 Hemoglobin A1c 5.3 (0.0-6.0) % Troponin I < 0.10 < 0.10 (0.0-0.29) NG/ML Result Diagrams: 05/29/17 07:25 05/29/17 07:25 *Q Meaningful Use (ADM) - VTE *Q VTE Criteria *Q: - Stroke *Q Stroke Criteria *Q: - AMI *Q AMI Criteria *Q: - Problem List (1) Chest pain SNOMED Code(s): 08441730 ICD Code: R07.9 - CHEST PAIN, UNSPECIFIED Status: Acute Current Visit: Yes Qualifiers: Chest pain type: chest pain on breathing Qualified Code(s): R07.1 - Chest pain on breathing; R07.81 - Pleurodynia (2) Congestive heart failure SNOMED Code(s): 76817467 ICD Code: I50.9 - HEART FAILURE, UNSPECIFIED Status: Acute Current Visit : No Qualifiers: Congestive heart failure chronicity: unspecified congestive heart failure chronicity Problem List Initiated/Reviewed/Updated: Yes Orders Last 24hrs: Active Orders 24 hr Category Date Time Status Cardiac Education [RC] Click to Edit Care 05/29/17 10:19 Active Cardiac Monitoring [RC] . DIRECTED Care 05/29/17 10:19 Inactive Daily Weight [Height and Weight] [RC] DAILY Care 05/29/17 19:02 Active Telemetry Monitoring [Cardiac Monitoring] [RC] . Care 05/29/17 10:27 Active DIRECTED 2 Gram Sodium Diet [DIET] Diet 05/30/17 Breakfast Active Echo Comp wo Cont [US] Routine Exams 05/29/17 12:13 Taken BASIC METABOLIC PANEL,BMP [CHEM] AM Lab 05/30/17 05:11 Ordered CBC WITH AUTO DIFF [HEME] AM Lab 05/30/17 05:11 Ordered LIPID PANEL [CHEM] AM Lab 05/30/17 05:11 Ordered MAGNESIUM [CHEM] AM Lab 05/30/17 05:11 Ordered Acetaminophen [Tylenol] Med 05/29/17 17:28 Active 650 mg PO Q4H PRN Aspirin [Ecotrin] Med 05/30/17 09:00 Active 325 mg PO DAILY Enoxaparin [Lovenox] Med 05/29/17 10:30 Active 40 mg SUBCUT Q24H Furosemide [Lasix] Med 05/29/17 21:00 Ordered 40 mg IVPUSH BID Melatonin [Melatonin] Med 05/29/17 19:02 Pending 2 tab PO BEDTIME PRN Metoprolol Succinate [Toprol XL] Med 05/30/17 09:00 Active 50 mg PO DAILY Morphine Med 05/29/17 10:27 Active 1 mg IVPUSH Q4H PRN Ondansetron [Zofran] Med 05/29/17 10:16 Active 4 mg PO Q4H PRN Code Status [Resuscitation Status] Routine Resus Stat 05/29/17 10:21 Ordered Medication Orders Acetaminophen (Tylenol) 650 mg PO Q4H PRN PRN Reason: Pain Last Admin: 05/29/17 17:59 Dose: 650 mg Aspirin (Ecotrin) 325 mg PO DAILY JONATHAN Enoxaparin Sodium (Lovenox) 40 mg SUBCUT Q24H JONATHAN Last Admin: 05/29/17 10:56 Dose: 40 mg Furosemide (Lasix) 40 mg IVPUSH BID JONATHAN Metoprolol Succinate (Toprol Xl) 50 mg PO DAILY JONATHAN Morphine Sulfate (Morphine) 1 mg IVPUSH Q4H PRN PRN Reason: Chest Pain Last Admin: 05/29/17 12:35 Dose: 1 mg Non-Formulary Medication (Melatonin [Melatonin]) 2 tab PO BEDTIME PRN PRN Reason: Sleep Ondansetron HCl (Zofran) 4 mg PO Q4H PRN PRN Reason: Nausea/Vomiting Sodium Chloride (Saline Flush) 10 ml FLUSH ASDIRECTED PRN PRN Reason: Keep Vein Open Sodium Chloride (Saline Flush) 2.5 ml FLUSH ASDIRECTED PRN PRN Reason: Keep Vein Open Assessment/Plan Comment:: Patient was seen and examined . Cp atypical - will f/up troponins times 3, lipid profile Hb A1c , continue metoprolol Xl 50 mg po daily Paroxismal a fib - patient is not on any anticoagulation now other than aspirin. Heart murmur?- will f/up echo CHF-chronicity unspecified- Lasix 40 mg iv q12h , I/o, daily weight, f/up echo , cardiology referral tobacco abuse- patient was counseled for more than 5 min to stop smoking dvt prof- heparin sq Agree with assessment and plan
[2017-05-29] MEDS ORDERED: Morphine 2 MG/ML Syringe IVPUSH PRN (10:27)
[2017-05-29] MEDS ORDERED: FLU Vacc QS 2017-18 (36mos UP)/PF 60 MCG/0.5 ML Syringe IM ONE (10:30)
[2017-05-29] MEDS ORDERED: Acetaminophen 325 MG Tab PO PRN (10:36)
[2017-05-29] MEDS ORDERED: Acetaminophen 325 MG Tab PO ONE (10:36)
[2017-05-29] MEDS: Enoxaparin 40 MG/0.4 ML Syringe SUBCUT SCH (10:56)
--- NOTE | 2017-05-29 12:53 | CR ---
EXAM DATE: 05/29/17 PATIENT'S AGE: 46 Patient: LIZABETH SAHNI Facility: [place], [place] Site . Site : 1970 Study: XRay Chest [id number]/22/2017 7:54:48 AM Ordering Physician: Vick Mclean Final Report: INDICATION: Chest pain and shortness of breath TECHNIQUE: Chest 1 views COMPARISON: 03/24/2017 FINDINGS: Cardiovascular and mediastinum: Stable borderline cardiomegaly. Mediastinum is within normal limits. Lungs and pleural spaces: Central congestive changes are similar to the prior exam. Remainder of the lungs and pleural spaces are clear. Bones and soft tissues: No significant findings. IMPRESSION: Stable central vascular congestion. Differential diagnosis includes fluid overload or CHF. Remainder of the exam is unremarkable. Dictated by Jackson Anderson MD @ 05/29/2017 7:57:43 AM Dictated by: Jackson Anderson MD @ 05/29/2017 07:57:50 (Electronic Signature) Report Signed by Proxy. [facility]ENTER[facility]oo
[2017-05-29] MEDS: Acetaminophen 325 MG Tab PO PRN ×2 (17:59→21:53)
[2017-05-29] MEDS ORDERED: MELATONIN PO PRN (19:02)
[2017-05-29] MEDS ORDERED: Melatonin 3 MG Tab PO PRN (20:15)
[2017-05-29] MEDS: Furosemide 40 MG/4 ML VIAL IVPUSH SCH (20:29)
[2017-05-30] MEDS: Acetaminophen 325 MG Tab PO PRN ×2 (04:28→08:14)
[2017-05-30 05:36] LABS: CHLORIDE,CL 108 mmol/L (98-110); SODIUM,NA 143 mmol/L (136-146)
[2017-05-30] MEDS: Furosemide 40 MG/4 ML VIAL IVPUSH SCH ×2 (08:14→14:18)
[2017-05-30 08:15] VITALS: BP 120/73
[2017-05-30] MEDS ORDERED: Metoprolol Succinate 50 MG Tab.ER PO SCH (09:00)
[2017-05-30] MEDS ORDERED: Aspirin 81 MG Tab.Chew PO SCH (09:00)
[2017-05-30] MEDS ORDERED: Furosemide 20 MG/2 ML VIAL IVPUSH SCH (09:00)
[2017-05-30] MEDS ORDERED: Aspirin 325 MG Tab.EC PO SCH (09:00)
[2017-05-30] MEDS: Enoxaparin 40 MG/0.4 ML Syringe SUBCUT SCH (10:49)
--- NOTE | 2017-05-31 16:24 | PCM.DCSUM1 ---
Discharge Summary - Hospital Course Free Text/Narrative:: 46 yo female with significant smoking history, chf, a-fib admitted for CHF excerabation. She complained of atypical chest pain, PND, sob x one week. Her chest pain was controlled with nitro patch. EKG: no acute changes. BNP 466. Troponin x 3 negative. Her lipid panel and hemoglobin A1c was within normal limits. She was admitted recently for A-fib with RVR that was diffucult to control and transferred to [facility]. Per patient Per She had abnormal stress test and the cardilogist did not feel to intervene. She was anticoagulated with aspirin and rate controlled with metoprolol. On this admission she did have atypical chest pain that was similar to previous admission. She was monitored in telemetry which did not reveal any arythmmais. Echo was done and pending results. She was discharged in stable condition. She is to continue lasix, metroprolol, aspirin. She is to follow up with PCP and manager android. - Discharge Data Discharge Date: 05/30/17 Discharge Disposition: Home, Self-Care 01 Condition: Good - Patient Instructions Diet: Heart Healthy Diet, Low Sodium Fluid Restriction: 2000 mL Activity: As Tolerated Driving: May Drive Today Showering/Bathing: May Shower Notify Provider of: Fever, Increased Pain, Swelling and Redness, Drainage, Nausea and/or Vomiting - Discharge Plan Prescriptions/Med Rec: Furosemide [Lasix] 40 mg PO DAILY #30 tablet Lisinopril 10 mg PO DAILY #30 tablet Potassium Chloride 20 meq PO DAILY #30 tablet.er Home Medications: Home Meds Aspirin 1 tab PO DAILY 05/29/17 [History] Melatonin 2 tab PO BEDTIME PRN 05/29/17 [History] Metoprolol Succinate 50 mg PO DAILY 05/29/17 [History] Varenicline Tartrate [Chantix] 2 tab PO BID 05/29/17 [History] Furosemide [Lasix] 40 mg PO DAILY #30 tablet 05/30/17 [Rx] Lisinopril 10 mg PO DAILY #30 tablet 05/30/17 [Rx] Potassium Chloride 20 meq PO DAILY #30 tablet.er 05/30/17 [Rx] Patient Handouts: Furosemide tablets, Potassium Salts tablets, extended- release tablets or capsules, Chest Wall Pain, [id number], Lisinopril tablets Referrals: Shayla Sinha MD [Physician] - (ff up after 1 to 2 weeks) PCP,None [Primary Care Provider] - (ff up after one week) - General Info Functional Status: Reports: Pain Controlled, Tolerating Diet - Review of Systems General: Reports: No Symptoms HEENT: Reports: No Symptoms Pulmonary: Reports: Shortness of Breath (improved) Cardiovascular: Reports: Chest Pain (resolved), Orthopnea (immproved), PND ( improved) Gastrointestinal: Reports: No Symptoms Genitourinary: Reports: No Symptoms Musculoskeletal: Reports: No Symptoms Skin: Reports: No Symptoms Neurological: Reports: No Symptoms - Patient Data Vitals - Most Recent: Last Vital Signs Temp 96.2 F 05/30/17 08:00 Pulse 60 05/30/17 08:15 Resp 18 05/30/17 08:00 BP 120/73 05/30/17 08:15 Pulse Ox 94 L 05/30/17 08:00 Weight - Most Recent: 108.7 kg Med Orders - Current: Current Medications Discontinued Medications Acetaminophen (Tylenol) 650 mg PO NOW ONE Stop: 05/29/17 10:37 Last Admin: 05/29/17 10:56 Dose: 650 mg Acetaminophen (Tylenol) 650 mg PO Q6H PRN PRN Reason: Pain Acetaminophen (Tylenol) 650 mg PO Q4H PRN PRN Reason: Pain Last Admin: 05/30/17 08:14 Dose: 650 mg Aspirin (Aspirin) 324 mg PO ONETIME ONE Stop: 05/29/17 07:16 Last Admin: 05/29/17 07:28 Dose: 324 mg Aspirin (Aspirin) Confirm Administered Dose 324 mg .ROUTE .STK-MED ONE Stop: 05/29/17 07:24 Last Admin: 05/29/17 07:29 Dose: Not Given Aspirin (Aspirin) 81 mg PO DAILY [facility] Aspirin (Ecotrin) 325 mg PO DAILY [facility] Last Admin: 05/30/17 08:14 Dose: 325 mg Enoxaparin Sodium (Lovenox) 40 mg SUBCUT Q24H [facility] Last Admin: 05/30/17 10:49 Dose: 40 mg Furosemide (Lasix) 20 mg IVPUSH NOW ONE Stop: 05/29/17 08:59 Last Admin: 05/29/17 09:11 Dose: 20 mg Furosemide (Lasix) 20 mg IVPUSH DAILY [facility] Furosemide (Lasix) 40 mg IVPUSH BIDDIURETIC JONATHAN Last Admin: 05/30/17 14:18 Dose: Not Given Influenza Virus Vaccine (Pharmacy To Dose - Influenza Vaccine) 1 each IM ONETIME ONE Stop: 05/29/17 10:16 Last Admin: 05/30/17 11:10 Dose: Not Given Influenza Virus Vaccine (Fluarix Quad [id number]) 60 mcg IM .ONCE ONE Stop: 05/29/17 10:31 Last Admin: 05/30/17 10:59 Dose: 60 mcg Melatonin (Melatonin) 6 mg PO BEDTIME PRN PRN Reason: Sleep Last Admin: 05/29/17 21:49 Dose: 6 mg Metoprolol Succinate (Toprol Xl) 50 mg PO DAILY [facility] Last Admin: 05/30/17 08:15 Dose: 50 mg Morphine Sulfate (Morphine) 2 mg IVPUSH ONETIME ONE Stop: 05/29/17 07:16 Last Admin: 05/29/17 07:28 Dose: 2 mg Morphine Sulfate (Morphine) 1 mg IVPUSH Q4H PRN PRN Reason: Chest Pain Last Admin: 05/29/17 12:35 Dose: 1 mg Nitroglycerin (Nitro-Bid 2%) 1 gm TOP ONETIME ONE Stop: 05/29/17 07:16 Last Admin: 05/29/17 07:28 Dose: 1 gm Non-Formulary Medication (Melatonin [Melatonin]) 2 tab PO BEDTIME PRN PRN Reason: Sleep Ondansetron HCl (Zofran) 4 mg IVPUSH ONETIME ONE Stop: 05/29/17 07:16 Last Admin: 05/29/17 07:28 Dose: 4 mg Ondansetron HCl (Zofran) 4 mg PO Q4H PRN PRN Reason: Nausea/Vomiting Sodium Chloride (Saline Flush) 10 ml FLUSH ASDIRECTED PRN PRN Reason: Keep Vein Open Sodium Chloride (Saline Flush) 2.5 ml FLUSH ASDIRECTED PRN PRN Reason: Keep Vein Open - Exam General: Reports: Alert, Oriented HEENT: Reports: Pupils Equal, EOMI Neck: Reports: Supple Lungs: Reports: Clear to Auscultation Cardiovascular: Reports: Regular Rate, Regular Rhythm, Other (diastolic heart murmur) *Q Meaningful Use (DIS) - VTE *Q VTE Criteria *Q: - Stroke *Q Stroke Criteria *Q: - AMI *Q AMI Criteria *Q:
--- NOTE | 2017-06-03 17:50 | ECHO ---
The echocardiogram report can be seen in this patient's EMR (electronic medical records) in the Reports section. The echocardiogram report has also been scanned into PACS and can be seen there. SELENE
== END 2017-05-30 13:00 | disposition home or self-care (01) ==
LOC: MW.ED 07:09 → MW.MS 08:58
PROVIDERS: ADMIT Internal Medicine; ATTEND Internal Medicine
DX: R07.89 Other chest pain (principal); I50.9 Heart failure, unspecified; I48.0 Paroxysmal atrial fibrillation; Z79.82 Long term (current) use of aspirin; Z79.899 Other long term (current) drug therapy; F17.210 Nicotine dependence, cigarettes, uncomplicated
CPT/HCPCS: 36415; 71010; 80048; 80053; 80061; 83036; 83735; 83880; 84484; 85025; 85610; 93005; 93306; 96372; 96374; 96375; 96376; 99285; A9270; G0008; G0378; J1650; J1940; J2270; J2405; 90686; 99283

== ENCOUNTER 2017-10-14 11:09 | Emergency (ER) | payer BC ==
--- NOTE | 2017-10-14 11:21 | EDM.PDOC ---
ED HPI GENERAL MEDICAL PROBLEM - General Chief Complaint: Lower Extremity Injury/Pain Stated Complaint: LT LEG HURTS Time Seen by Provider: 10/14/17 11:18 - History of Present Illness INITIAL COMMENTS - FREE TEXT/NARRATIVE: HISTORY AND PHYSICAL: History of present illness: Patient 47-year-old white female presents with concern of left leg pain and swelling this but over last 24 hours she has a history of dependent edema she is on a water pill and is followed by cardiology. She denies chest pain shortness of breath history DVT or PE denies trauma or other concern. Review of systems: As per history of present illness and below otherwise all systems reviewed and negative. Past medical history: As per history of present illness and as reviewed below otherwise noncontributory. Surgical history: As per history of present illness and as reviewed below otherwise noncontributory. Social history: No reported history of drug or alcohol abuse. Family history: As per history of present illness and as reviewed below otherwise noncontributory. Physical exam: HEENT: Atraumatic, normocephalic, pupils reactive, negative for conjunctival pallor or scleral icterus, mucous membranes moist, throat clear, neck supple, nontender, trachea midline. Lungs: Clear to auscultation, breath sounds equal bilaterally, chest nontender. Heart: S1S2, regular, negative for clicks, rubs, or JVD. Abdomen: Soft, nondistended, nontender. Negative for masses or hepatosplenomegaly. Negative for costovertebral tenderness. Pelvis: Stable nontender. Genitourinary: Deferred. Rectal: Deferred. Extremities: Patient does have 1-2+ edema in the inferior extremities left slightly greater than right is now cords is equivocal calf pain there are some superficial varicosities noted CMS neurovascular exams unremarkable Neuro: Awake, alert, oriented. Cranial nerves II through XII unremarkable. Cerebellum unremarkable. Motor and sensory unremarkable throughout. Exam nonfocal. Diagnostics: Venous Doppler left lower extremity Therapeutics: None Impression: # 1 left lower extremity pain #2 dependent edema Definitive disposition and diagnosis as appropriate pending reevaluation and review of above. - Related Data Allergies Allergy/AdvReac Type Severity Reaction Status Date / Time No Known Allergies Allergy Verified 10/14/17 11:23 Home Meds: Home Meds Aspirin 1 tab PO DAILY 05/29/17 [History] Melatonin 2 tab PO BEDTIME PRN 05/29/17 [History] Metoprolol Succinate 50 mg PO DAILY 05/29/17 [History] Varenicline Tartrate [Chantix] 2 tab PO BID 05/29/17 [History] Furosemide [Lasix] 40 mg PO DAILY #30 tablet 05/30/17 [Rx] Lisinopril 10 mg PO DAILY #30 tablet 05/30/17 [Rx] Potassium Chloride 20 meq PO DAILY #30 tablet.er 05/30/17 [Rx] Past Medical History HEENT History: Reports: None Cardiovascular History: Reports: None. Denies: CAD, Heart Failure, High Cholesterol, Hypertension, HI Respiratory History: Reports: Other (See Below). Denies: COPD Other Respiratory History: PNEUMONIA usually twice yearly Gastrointestinal History: Reports: None CORRECTIONAL COUNSELOR History: Reports: None Musculoskeletal History: Reports: Other (See Below) Other Musculoskeletal History: chronic knee pain Neurological History: Reports: None Psychiatric History: Reports: None Oncologic (Cancer) History: Reports: None Dermatologic History: Reports: None - Infectious Disease History Infectious Disease History: Reports: Chicken Pox - Past Surgical History HEENT Surgical History: Reports: None GI Surgical History: Reports: None Musculoskeletal Surgical History: Reports: Other (See Below) Other Musculoskeletal Surgeries/Procedures:: KNEE SURGERY Social & Family History - Family History Family Medical History: Noncontributory Cardiac: Reports: Bypass, Other (See Below) Other Cardiac Family History: grandma had a stroke Oncologic: Reports: Prostate Other Oncologic Family History: mom's father had prostate CA - Tobacco Use Smoking Status *Q: Current Every Day Smoker Years of Tobacco use: 30 Packs/Tins Daily: 0.2 Used Tobacco, but Quit: No Second Hand Smoke Exposure: No - Caffeine Use Caffeine Use: Reports: Soda - Alcohol Use Days Per Week of Alcohol Use: 0 - Recreational Drug Use Recreational Drug Use: No Review of Systems - Review of Systems Review Of Systems: ROS reveals no pertinent complaints other than HPI. ED EXAM, GENERAL - Physical Exam Exam: See Below (Dictation) Course - Vital Signs Last Recorded V/S: Last Vital Signs Temp 36.1 C 10/14/17 11:23 Pulse 84 10/14/17 11:23 Resp 16 10/14/17 11:23 BP 103/75 10/14/17 11:23 Pulse Ox 96 10/14/17 11:23 Departure - Departure Time of Disposition: 13:25 Disposition: Home, Self-Care 01 Condition: Good Clinical Impression: Leg pain - Discharge Information Referrals: PCP,None [Primary Care Provider] - Forms: ED Department Discharge Additional Instructions: The following information is given to patients seen in the emergency department who are being discharged to home. This information is to outline your options for follow-up care. We provide all patients seen in our emergency department with a follow-up referral. The need for follow-up, as well as the timing and circumstances, are variable depending upon the specifics of your emergency department visit. If you don't have a primary care physician on staff, we will provide you with a referral. We always advise you to contact your personal physician following an emergency department visit to inform them of the circumstance of the visit and for follow-up with them and/or the need for any referrals to a consulting specialist. The emergency department will also refer you to a specialist when appropriate. This referral assures that you have the opportunity for followup care with a specialist. All of these measure are taken in an effort to provide you with optimal care, which includes your followup. Under all circumstances we always encourage you to contact your private physician who remains a resource for coordinating your care. When calling for followup care, please make the office aware that this follow-up is from your recent emergency room visit. If for any reason you are refused follow-up, please contact the [facility] emergency department at and asked to speak to the emergency department charge nurse. Continue current medications follow-up private medical doctor return as needed as discussed
[2017-10-14 11:34] VITALS: BP 103/75
--- NOTE | 2017-10-14 12:27 | US ---
ULTRASOUND EXAMINATION OF the left lower extremity WITH DOPPLER HISTORY: Pain FINDINGS: Examination of the left leg was performed from the groin to the calf region. All visualized segments including common femoral, proximal greater saphenous, superficial femoral, popliteal and calf veins appear patent with good compressibility and augmentation. There is no evidence of deep vein thrombos is. IMPRESSION: No evidence of a DVT.
== END 2017-10-14 13:35 | disposition home or self-care (01) ==
LOC: MW.ED 11:09
DX: M79.605 Pain in left leg (principal); R60.0 Localized edema; F17.210 Nicotine dependence, cigarettes, uncomplicated; Z79.82 Long term (current) use of aspirin; Z79.899 Other long term (current) drug therapy
CPT/HCPCS: 93971-26-LT; 93971-LT; 99282; 99283-25

== ENCOUNTER 2019-05-11 15:22 | Emergency (ER) | payer BC ==
--- NOTE | 2019-05-11 15:51 | EDM.PDOC ---
ED HPI GENERAL MEDICAL PROBLEM - General Chief Complaint: Skin Complaint Stated Complaint: INFECTED INCISION Time Seen by Provider: 05/11/19 15:33 Source of Information: Reports: Patient History Limitations: Reports: No Limitations - History of Present Illness INITIAL COMMENTS - FREE TEXT/NARRATIVE: HISTORY AND PHYSICAL: History of present illness: patient is a 48-year-old female who presents to the emergency room with concerns of a postoperative infection. She did have open-heart surgery on at [facility] in [place]. She reports that the incision site was intact and she had no concerns up until approximately 2 days ago. 2 days ago she had noticed that the upper portion of the incision site had small area of opening. Today while receiving her routine lab work, which gets sent to [facility], she had showed the pit supervisor her incision who recommended she come to the emergency room. The patient did call her surgeon at [facility] who recommended she come to the clinic to be seen area and patient stated she did not want to drive to [place] and opted to come to the emergency room for evaluation. She does have a routine follow-up appointment next week. Besides the physical appearance of the laceration she offers no other complaints or concerns. She has no increased pain, drainage or any other systemic complaints. Review of systems: As per history of present illness and below otherwise all systems reviewed and negative. Past medical history: As per history of present illness and as reviewed below otherwise noncontributory. Surgical history: As per history of present illness and as reviewed below otherwise noncontributory. Social history: See social history for further information Family history: As per history of present illness and as reviewed below otherwise noncontributory. Physical exam: General: well-developed and well-nourished 48-year-old female. Alert and oriented. Nontoxic appearing and in no acute distress. HEENT: Atraumatic, normocephalic, pupils equal and reactive bilaterally, negative for conjunctival pallor or scleral icterus, mucous membranes moist, TMs normal bilaterally, throat clear, neck supple, nontender, trachea midline. No drooling or trismus noted. No meningeal signs. No hot potato voice noted. Lungs: Clear to auscultation, breath sounds equal bilaterally, chest nontender. Heart: S1S2, regular rate and rhythm without overt murmur Abdomen: Soft, nondistended, nontender. Negative for masses or hepatosplenomegaly. Negative for costovertebral tenderness. Pelvis: Stable nontender. Skin: Patient has a midline incision to midsternum. The incision has 3 areas with minimal T history measuring approximately 1 cm in width and an opening 0.5cm. no drainage is coming from the site. There is some minimal erythema around the incision edges. Nonfluctuant and nontender with palpation.Otherwise skin is intact, warm, dry. No lesions or rashes noted. Extremities: Atraumatic, moves all extremities per self without difficulty or deficits, negative for cords or calf pain. Neurovascular unremarkable. Neuro: Awake, alert, oriented. Cranial nerves II through XII unremarkable. Cerebellum unremarkable. Motor and sensory unremarkable throughout. Exam nonfocal. Notes: The area has no drainage. I did have Dr Schneider assess this patient; she agrees that we should cover her with Keflex and continue to monitor. We discussed signs and symptoms that would prompt her to return to the ED. I did attempt a hold of Dr. Viveros, one call stating that he is a local comes and is not on at this time. Supportive care measures were reviewed and discussed. Voices understanding and is agreeable to plan of care. Denies any further questions or concerns at this time. Diagnostics: None Therapeutics: None Prescription: Keflex Impression: Wound dehiscence Plan: 1. Wash the area gently with soap and water. Continue to monitor as we discussed. 2. Keep your appointment as directed 3. Return to the ED as needed as discussed. Definitive disposition and diagnosis as appropriate pending reevaluation and review of above. Chest Pain Score (Numeric/FACES): 4 - Related Data Allergies Allergy/AdvReac Type Severity Reaction Status Date / Time No Known Allergies Allergy Verified 10/14/17 11:23 Home Meds: Home Meds Melatonin 2 tab PO BEDTIME PRN 05/29/17 [History] Metoprolol Succinate 50 mg PO DAILY 05/29/17 [History] Furosemide [Lasix] 40 mg PO DAILY #30 tablet 05/30/17 [Rx] Lisinopril 10 mg PO DAILY #30 tablet 05/30/17 [Rx] Potassium Chloride 20 meq PO DAILY #30 tablet.er 05/30/17 [Rx] Hydrocodone/Acetaminophen [Hydrocodon-Acetaminophen 5-325] 1 each PO ASDIRECTED 05/11/19 [History] Warfarin [Coumadin] 4 mg PO DAILY 05/11/19 [History] Past Medical History HEENT History: Reports: None Cardiovascular History: Reports: None Respiratory History: Reports: Other (See Below) Other Respiratory History: PNEUMONIA usually twice yearly Gastrointestinal History: Reports: None RESPIRATORY PHYSICIAN History: Reports: None Musculoskeletal History: Reports: Other (See Below) Other Musculoskeletal History: chronic knee pain Neurological History: Reports: None Psychiatric History: Reports: None Oncologic (Cancer) History: Reports: None Dermatologic History: Reports: None - Infectious Disease History Infectious Disease History: Reports: Chicken Pox - Past Surgical History HEENT Surgical History: Reports: None Cardiovascular Surgical History: Reports: Valve Replacement Other Cardiovascular Surgeries/Procedures: Mitral valve apr 20 2019 GI Surgical History: Reports: None Musculoskeletal Surgical History: Reports: Other (See Below) Other Musculoskeletal Surgeries/Procedures:: KNEE SURGERY Social & Family History - Family History Family Medical History: Noncontributory Cardiac: Reports: Bypass, Other (See Below) Other Cardiac Family History: grandma had a stroke Oncologic: Reports: Prostate Other Oncologic Family History: mom's father had prostate CA - Tobacco Use Smoking Status *Q: Former Smoker Years of Tobacco use: 30 Packs/Tins Daily: 1 Used Tobacco, but Quit: Yes Month/Year Tobacco Last Used: 3 weeks - Caffeine Use Caffeine Use: Reports: Coffee - Recreational Drug Use Recreational Drug Use: No ED ROS GENERAL - Review of Systems Review Of Systems: ROS reveals no pertinent complaints other than HPI. ED EXAM, SKIN/RASH Exam: See Below (See dictatioin) Course - Vital Signs Last Recorded V/S: Last Vital Signs Temp 96.7 F 05/11/19 15:36 Pulse 71 05/11/19 15:36 Resp 16 05/11/19 15:36 BP 118/66 05/11/19 15:36 Pulse Ox 95 05/11/19 15:36 Departure - Departure Time of Disposition: 15:52 Disposition: Home, Self-Care 01 Clinical Impression: Dehiscence of incision Qualifiers: Encounter type: initial encounter Qualified Code(s): T81.31XA - Disruption of external operation (surgical) wound, not elsewhere classified, initial encounter - Discharge Information Instructions: Wound Dehiscence, [id number] Referrals: Shayla Sinha MD [Primary Care Provider] - Forms: ED Department Discharge Additional Instructions: The following information is given to patients seen in the emergency department who are being discharged to home. This information is to outline your options for follow-up care. We provide all patients seen in our emergency department with a follow-up referral. The need for follow-up, as well as the timing and circumstances, are variable depending upon the specifics of your emergency department visit. If you don't have a primary care physician on staff, we will provide you with a referral. We always advise you to contact your personal physician following an emergency department visit to inform them of the circumstance of the visit and for follow-up with them and/or the need for any referrals to a consulting specialist. The emergency department will also refer you to a specialist when appropriate. This referral assures that you have the opportunity for follow-up care with a specialist. All of these measure are taken in an effort to provide you with optimal care, which includes your follow-up. Under all circumstances we always encourage you to contact your private physician who remains a resource for coordinating your care. When calling for follow-up care, please make the office aware that this follow-up is from your recent emergency room visit. If for any reason you are refused follow-up, please contact the [facility] Emergency Department at and asked to speak to the emergency department charge nurse. [facility] [address] [place], [place] [id number] [place] [address] 1. Wash the area gently with soap and water. Continue to monitor the area as we discussed. 2. Keep your appointment as directed 3. Return to the ED as needed as discussed.
[2019-05-11 16:08] VITALS: BP 116/70; PULSE 78
== END 2019-05-11 16:08 | disposition home or self-care (01) ==
LOC: MW.ED 15:22
DX: T81.31XA Disruption of external operation (surgical) wound, not elsewhere classified, initial encounter (principal); Z87.891 Personal history of nicotine dependence
CPT/HCPCS: 99282; 99283